=== PATIENT | female | born 1965 | race Caucasian/White ===

== ENCOUNTER → 2017-01-12 | Outpatient (CLI) | payer MEDICAID ==
[~2017-01-12] MED LIST: IOPAMIDOL (ISOVUE-300) 100 ML BTL ONE
== END ==
LOC: FIMAGING 12:18
PROVIDERS: ATTEND Internal Medicine Infectious Disease
DX: R10.84 Generalized abdominal pain (principal); R50.9 Fever, unspecified; R93.3 Abnormal findings on diagnostic imaging of other parts of digestive tract
CPT/HCPCS: Q9967

== ENCOUNTER 2017-02-09 13:03 | Emergency (ER) | payer MEDICAID ==
--- NOTE | 2017-02-09 13:25 | EDPHY ---
H & P Time Seen by Provider: 02/09/17 13:18 HPI/ROS: CHIEF COMPLAINT: Right upper quadrant abdominal pain HPI: The patient is a 51-year-old female who tells me she has a history of chronic Giardia. She underwent a cholecystectomy at some point in the last few years secondary to concern that Giardia might be being harbored in her gallbladder. Since that time she continues to have right upper quadrant pain. She underwent CT scan of her abdomen approximately 1 month ago which showed an abnormal finding in the gallbladder fossa. She is scheduled for a HIDA scan tomorrow. She reports worsening of chronic pain and right upper quadrant which has become severe. This pain is worse with laying on the right side. It is also worse with taking a deep breath. She denies any chest pain or shortness of breath. She denies fever. REVIEW OF SYSTEMS: Aside from elements discussed in the HPI, a comprehensive 10-point review of systems was reviewed and is negative. PMH: Patient underwent an abdominal CT on 01/12/2017 which showed a hypodense collection in the gallbladder fossa, possibly biloma, otherwise negative. SOCIAL HISTORY: Denies alcohol or drug abuse. PHYSICAL EXAM: General:Patient is alert, in no acute distress. She appears in pain. ENT:Eyes are normal to inspection. ENT inspection normal. Neck: Normal inspection. Full range of motion. Respiratory:No respiratory distress. Breath sounds normal bilaterally. Cardiovascular: Regular rate and rhythm. Strong peripheral pulses. Normal cap refill. Abdomen:The abdomen is tender to palpation in the right upper quadrant.. There are no peritoneal signs. There are normal bowel sounds. Back: Normal to inspection. No tenderness to palpation. Skin: Normal color. No rash. Warm and dry. Extremities: Normal appearance. Full range of motion. Neuro: Oriented x3. Normal motor function. Normal sensory function. Smoking Status: Never smoked Constitutional: Initial Vital Signs Temperature (C) 36.6 C 02/09/17 13:05 Heart Rate 72 02/09/17 13:05 Respiratory Rate 18 02/09/17 13:05 Blood Pressure 150/100 H 02/09/17 13:05 O2 Sat (%) 96 02/09/17 13:05 O2 Delivery Mode Room Air O2 (L/minute) 2 Allergies/Adverse Reactions: Sulfa (Sulfonamide Antibiotics) Allergy (Intermediate, Verified 02/09/17 13:11) Hives NSAIDS (Non-Steroidal Anti-Inflamma Allergy (Verified 02/09/17 13:11) paromomycin Allergy (Verified 02/09/17 13:11) tramadol Allergy (Verified 02/09/17 13:11) sz meds Allergy (Uncoded 02/09/17 13:11) Home Medications: Medication Instructions Recorded Diltiazem [Cardizem] 120 mg PO 02/09/17 Fenafexine 02/09/17 Flecainide Acetate 50 mg PO 02/09/17 LORazepam [Ativan (*)] 0.5 mg PO 02/09/17 Levothyroxine [Synthroid 88 mcg 88 mcg PO 02/09/17 (*)] Topiramate [Topamax 25MG Sprinkles 25 mg PO DAILY 02/09/17 (*)] MDM/Departure - MDM Imaging Results: Imaging Impressions Abdomen Ultrasound 02/09/17 14:21 IMPRESSION: 1. Cholelithiasis with a positive sonographic Lee sign. The rounded structure in the gallbladder fossa appears to represent the gallbladder. Further clinical correlation and review of a prior operative report would be helpful. If there is further clinical concern, a nuclear medicine hepatobiliary scan could be considered. 2. Mild hepatomegaly with generalized steatosis. 3. Borderline-prominence of the CBD and pancreatic duct, with no choledocholithiasis observed. 4. Suboptimal assessment of the aorta such that the distal aorta is obscured by overlying bowel gas. Findings were discussed with Harvey Fang MD at 15:19, on 02/09/2017. Imaging: Discussed imaging studies w/ technical business systems analyst Radiologist, I viewed and interpreted images myself Medications Given: Discontinued Medications Hydromorphone HCl (Dilaudid) 1 mg IVP EDNOW ONE Stop: 02/09/17 13:34 Last Admin: 02/09/17 13:48 Dose: 1 mg Hydromorphone HCl (Dilaudid) 1 mg IVP EDNOW ONE Stop: 02/09/17 14:58 Last Admin: 02/09/17 15:01 Dose: 1 mg Hydromorphone HCl (Dilaudid) 1 mg IVP EDNOW ONE Stop: 02/09/17 17:56 Last Admin: 02/09/17 17:57 Dose: 1 mg Oxycodone/Acetaminophen (Percocet 5/325mg Prepack#4) 1 btl [place] ONE Stop: 02/09/17 18:31 Last Admin: 02/09/17 18:33 Dose: 1 btl ED Course/Re-evaluation: I consulted Dr. Major from Surgery at 3:35pm. She has evaluated the patient thoroughly and has arranged for close follow-up with [facility] hepatobiliary service. Medical decision making: This patient presents with worsening of chronic right upper quadrant pain that has become severe. Her clinical presentation is quite confusing as she has a history of a cholecystectomy 1 year ago, but CT and ultrasound suggested the patient still has a gallbladder, and now has gallstones. I was able to pull up the patient's operative report and pathology report from her cholecystectomy 1 year ago, and these clearly do mention the removal of her gallbladder. Given this apparent contradiction, I consulted Dr. Alvarado from surgery and she has evaluated the patient extensively. She offered the patient admission to the hospital and surgical intervention, as well as emergent transfer to the [facility] for further evaluation. The patient feels comfortable going home. She will follow up with her scheduled HIDA scan tomorrow and has been given resources to follow up with the [facility]. She is comfortable with this plan. We discussed strict return precautions. The etiology of her right upper quadrant pain is unknown, but there is clearly an abnormality there that may represent either retained partial gallbladder or possible biloma. Her liver function tests are normal. - Depart Disposition: Home, Routine, Self-Care Clinical Impression: Abdominal pain Condition: Good Instructions: Abdominal Pain (ED) Additional Instructions: Follow-up with your HIDA scan tomorrow as scheduled. No pain medication after midnight. Follow-up with Dr. Matthews from [facility] tomorrow ([phone]). Return to the Emergency Department for worsening pain, fever, severe vomiting, change in character or severity of pain or other worsening of condition. Referrals: PHILLIP PUGH [Other] - As per Instructions
[2017-02-09] MEDS ORDERED: HYDROmorphONE/DILAUDID 1 MG/ML SYR IVP ONE ×3 (13:33→17:55)
[2017-02-09] MEDS ORDERED: ONDANSETRON 4 MG/2 ML VIAL ONE (13:37)
[2017-02-09 13:52] LABS: % IMMATURE GRANULYOCYTES 0.7 % (0.0-1.1); ABSOLUTE IMMATURE GRANULOCYTES 0.05 10^3/uL (0.00-0.10); ADD DIFF? NO; ADD MORPH? NO; ADD SCAN? NO; ATYPICAL LYMPHOCYTE FLAG 0 (0-99); FRAGMENT RBC FLAG 0 (0-99); HEMATOCRIT 41.7 % (38.0-47.0); HEMOGLOBIN 13.9 g/dL (12.6-16.3); LEFT SHIFT FLG 0 (0-99); LIPEMIA HEMOLYSIS FLAG 80 (0-99); MEAN CELL HEMOGLOBIN 29.1 pg (27.9-34.1); MEAN CELL HEMOGLOBIN CONCENTR. 33.3 g/dL (32.4-36.7); MEAN CELL VOLUME 87.2 fL (81.5-99.8); MEAN PLATELET VOLUME 9.8 fL (8.7-11.7); PLATELET CLUMPS FLAG 0 (0-99); PLATELET COUNT 203 10^3/uL (150-400); RED BLOOD CELL COUNT 4.78 10^6/uL (4.18-5.33); RED CELL DISTRIBUTION WIDTH 13.7 % (11.5-15.2)
[2017-02-09 14:11] LABS: ALANINE AMINOTRANSFERASE 41 IU/L (9-52); ALBUMIN 4.1 g/dL (3.5-5.0); ALKALINE PHOSPHATASE 87 IU/L (38-126); ANION GAP 10 mEq/L (8-16); ASPARTATE AMINOTRANSFERASE 26 IU/L (14-46); BILIRUBIN,TOTAL 0.3 mg/dL (0.1-1.4); BILIRUBIN-CONJUGATED 0.2 mg/dL (0.0-0.5); BILIRUBIN-UNCONJUGATED 0.1 mg/dL (0.0-1.1); CALCIUM 9.2 mg/dL (8.5-10.4); CARBON DIOXIDE 21 mEq/l (22-31); CHLORIDE 108 mEq/L (97-110); GLOMERULAR FILTRATION RATE 58; GLUCOSE 89 mg/dL (70-100); POTASSIUM 3.8 mEq/L (3.5-5.2); SODIUM 139 mEq/L (134-144)
[2017-02-09] MEDS ORDERED: HYDROmorphONE/DILAUDID 1 MG/ML SYR ONE ×2 (14:56→17:51)
[2017-02-09 17:57] VITALS: TEMP 98.1
[2017-02-09] MEDS ORDERED: OXYCODONE/APAP 5/325MG PREPACK#4 BTL TAKEHOME ONE (18:30)
[2017-02-09 18:45] VITALS: BP 133/72; PULSE 52; RESP 14; O2SAT 95
--- NOTE | 2017-02-09 21:09 | GCON ---
[f rep st] CONSULTATION GENERAL SURGERY DATE OF CONSULTATION: 02/09/2017 REQUESTING PHYSICIAN: Dr. Harvey Fang. REASON FOR CONSULTATION: Right upper quadrant pain. HISTORY OF PRESENT ILLNESS: The patient is a 51-year-old woman who developed Giardia approximately 2 years ago. She was seen by an infectious disease specialist, and tried antibiotics for approximately 1 year. She had persistent Giardia, and the thought was that her gallbladder could be harboring this. In January of 2016, she had a cholecystectomy performed at [facility], and upon reviewing the operative note it appeared that this was a difficult cholecystectomy, and the gallbladder was taken down from a dome down approach. The surgeon used a 35 ELADIA stapler to come across what the surgeon thought was the cystic duct. Upon reviewing the pathology report, it reveals a 6.2 x 3.3 x 2.5 cm gallbladder with no stones, and the diagnosis revealed chronic cholecystitis with extensive cholesterolosis. I did not see a specific mention of a cystic duct on the pathology report. She then started seeing Dr. Dominguez Rosales in September of 2016. He tested her for Giardia, which was negative, and she started developing postprandial epigastric pain, burning, and fullness. She had a CT scan performed in December, which showed a hypodense collection in the gallbladder fossa measuring 4.1 x 2.6 with increased densities. There was mention of the cystic duct on this report. She was then scheduled to have a HIDA scan tomorrow, but presented to the ER today due to discomfort. It is worse with breathing. She is uncomfortable in many positions, and she still describes it as burning. She had an ultrasound obtained in the emergency room, which showed cholelithiasis, and a positive sonographic Lee's sign. Again, the structure in the gallbladder fossa looked like the gallbladder. No choledocholithiasis was observed. There was no intrahepatic biliary ductal dilatation. PAST MEDICAL HISTORY: Includes adult onset epilepsy, hypothyroidism, hypertension. PAST SURGICAL HISTORY: Includes cholecystectomy, as above, and hysterectomy. She does report that she had another challenging postoperative course after her hysterectomy, where 2 years later passed a large clot or gauze from her vagina. SOCIAL HISTORY: She denies alcohol or drug use. REVIEW OF SYSTEMS: Significant for some shortness of breath due to right upper quadrant pain. Otherwise, 10-point review of systems is negative. ALLERGIES: Sulfa, NSAIDs,tramadol. MEDICATIONS: Reviewed on [employer]. PHYSICAL EXAM: VITAL SIGNS: 36.7, 68, 143/72, 18, 97%. GENERAL: Pleasant, obese woman, lying on side on gurney with family at bedside. She is an excellent historian. HEENT: Normocephalic. Glasses. No gross hearing deficits. Mucous membranes moist. Pupils equal and round. No scleral icterus. LUNGS: Clear to auscultation bilaterally. No increased work of breathing. CARDIAC: Regular rate. No obvious peripheral edema. ABDOMEN: Soft. Her bowel sounds are present. She is tender to deep palpation in the right upper quadrant. No costal tenderness. MUSCULOSKELETAL: Normal nails. NEUROLOGIC: Grossly intact. PSYCH: Appropriately upset at times during the interview. Otherwise, mood and affect normal. LABORATORY DATA: Results reviewed. I personally reviewed the images of the CT scan, the ultrasound, the operative note, and the pathology report. To me, I do see what appears to be a gallbladder remnant on both the CT and the ultrasound. Her labs are within normal limits. IMPRESSION PLAN: The patient is a 51-year-old with right upper quadrant pain. Upon putting all this information together, I believe that she had a dome down approach, and that the surgeon believed he was coming across the cystic duct, but in fact came across the infundibulum, and she has a retained remnant of the gallbladder. I believe that she is symptomatic from this. I discussed with the patient that I believe she would need an open surgery to remove the gallbladder remnant in order to safely be able to dissect around the cystic duct , as well as stay away from injuring the common bile duct or other structures in the area. I am unsure of how much scarring she will have. Her weight would also play a factor in this. The patient did ask to be seen by hepatobiliary specialist. I consulted Dr. Antolin Matthews at the [place], and he recommended continuing to go through with a HIDA scan. I asked the patient not to take pain medicines after midnight, and then to call his office at [phone] in the morning to make an appointment. He will see her Monday afternoon if that is still feasible or next week to develop a plan. I spent approximately 100 minutes interviewing the patient, personally reviewing her films, her operative note, her pathology report, discussing the case with Dr. Matthews, as well as Dr. Fang and Dr. Rosales. I offered the patient the opportunity to be admitted to the [facility], although I do believe that an outpatient appointment is appropriate. She was agreeable to the plan. She understands that she can reach out if her pain is not controlled at home, and then [facility]. /[id number]/MODL MTDD
== END 2017-02-09 18:45 | disposition home or self-care (01) ==
DX: R10.11 Right upper quadrant pain (principal)
CPT/HCPCS: 96374; J1170; J2405

== ENCOUNTER → 2017-02-10 | Outpatient (CLI) | payer MEDICAID | LOC: FIMAGING 10:46 | PROVIDERS: ATTEND Internal Medicine Infectious Disease | DX: R10.11 Right upper quadrant pain (principal) | CPT/HCPCS: A9537 ==

== ENCOUNTER 2017-03-12 15:33 | Emergency (ER) | payer MEDICAID ==
[2017-03-12 15:42] VITALS: RESP 18; O2SAT 92
[2017-03-12 16:25] LABS: % IMMATURE GRANULYOCYTES 0.6 % (0.0-1.1); ABSOLUTE IMMATURE GRANULOCYTES 0.07 10^3/uL (0.00-0.10); ADD DIFF? NO; ADD MORPH? NO; ADD SCAN? NO; ATYPICAL LYMPHOCYTE FLAG 0 (0-99); FRAGMENT RBC FLAG 0 (0-99); HEMATOCRIT 43.2 % (38.0-47.0); HEMOGLOBIN 14.4 g/dL (12.6-16.3); LEFT SHIFT FLG 0 (0-99); LIPEMIA HEMOLYSIS FLAG 80 (0-99); MEAN CELL HEMOGLOBIN 29.2 pg (27.9-34.1); MEAN CELL HEMOGLOBIN CONCENTR. 33.3 g/dL (32.4-36.7); MEAN CELL VOLUME 87.6 fL (81.5-99.8); MEAN PLATELET VOLUME 10.2 fL (8.7-11.7); PLATELET CLUMPS FLAG 0 (0-99); PLATELET COUNT 231 10^3/uL (150-400); RED BLOOD CELL COUNT 4.93 10^6/uL (4.18-5.33); RED CELL DISTRIBUTION WIDTH 13.7 % (11.5-15.2)
--- NOTE | 2017-03-12 16:32 | EDPHY ---
H & P Stated Complaint: ABD Pain Time Seen by Provider: 03/12/17 15:53 HPI/ROS: CHIEF COMPLAINT: Acute exacerbation of chronic abdominal pain HISTORY OF PRESENT ILLNESS: The patient presents to the ED with an acute exacerbation of chronic abdominal pain. The patient has had persistent right upper quadrant pain following a cholecystectomy attributed to a remnant gallbladder not completely removed. The patient was considered for a surgical revision of her cholecystectomy but instead elected for endoscopic stenting. She underwent a stent placement into her remnant gallbladder on of this week at [facility]. Since that time she has had acutely worsening mid abdominal pain with associated nausea. The patient denies vomiting. She denies fever. She also has a history of a reported chronic Giardia infection. REVIEW OF SYSTEMS: A comprehensive 10 point review of systems is otherwise negative aside from elements mentioned in the history of present illness. Source: Patient Exam Limitations: No limitations - Personal History LMP (Females 10-55): Hysterectomy - Medical/Surgical History Other PMH: past hx giardia. diverticulitis. biloma post GB surgery. hysterectomy 2012 - Social History Smoking Status: Never smoked - Physical Exam Exam: General Appearance: Alert, no distress Eyes: Pupils equal and round no pallor or injection ENT, Mouth: Mucous membranes moist Respiratory: There are no retractions, lungs are clear to auscultation Cardiovascular: Regular rate and rhythm Gastrointestinal: Tenderness to palpation noted in the mid epigastrium, normal bowel sounds, no peritoneal signs Neurological: A&O, normal motor function, normal sensory exam, normal cranial nerves Skin: Warm and dry, no rashes Musculoskeletal: Neck is supple nontender Extremities: symmetrical, full range of motion Constitutional: Initial Vital Signs Temperature (C) 36.8 C 03/12/17 15:39 Heart Rate 78 03/12/17 15:39 Respiratory Rate 18 03/12/17 15:39 Blood Pressure 142/87 H 03/12/17 15:39 O2 Sat (%) 92 03/12/17 15:39 O2 Delivery Mode Room Air Allergies/Adverse Reactions: Sulfa (Sulfonamide Antibiotics) Allergy (Intermediate, Verified 03/12/17 15:38) Hives NSAIDS (Non-Steroidal Anti-Inflamma Allergy (Verified 03/12/17 15:38) paromomycin Allergy (Verified 03/12/17 15:38) tramadol Allergy (Verified 03/12/17 15:38) sz meds Allergy (Uncoded 02/09/17 13:11) Home Medications: Medication Instructions Recorded Diltiazem [Cardizem] 120 mg PO 02/09/17 Fenafexine 02/09/17 Flecainide Acetate 50 mg PO 02/09/17 LORazepam [Ativan (*)] 0.5 mg PO 02/09/17 Levothyroxine [Synthroid 88 mcg 88 mcg PO 02/09/17 (*)] Topiramate [Topamax 25MG Sprinkles 25 mg PO DAILY 02/09/17 (*)] Medical Decision Making ED Course/Re-evaluation: I reviewed the patient's past medical records in [facility]. The patient's vital signs are noted to be within normal limits. She has mild abdominal tenderness without peritoneal signs. The patient's laboratory studies, liver function tests and lipase are unremarkable. At this point time there is no evidence of post ERCP pancreatitis or evidence of biliary obstruction. I do feel the patient can be discharged home with close follow up with her primary barrel scraper. She has been instructed to return to the ED for markedly worsening pain, fever, jaundice or other concerns. Differential Diagnosis: Differential diagnosis considered includes post ERCP pancreatitis, hepatitis, gastroenteritis, metabolic abnormality - Data Points Laboratory Results: Laboratory Results 03/12/17 16:10 03/12/17 16:10 03/12/17 03/12/17 16:10 16:10 WBC 11.25 10^3/uL H 10^3/uL (3.80-9.50) RBC 4.93 10^6/uL 10^6/uL (4.18-5.33) Hgb 14.4 g/dL g/dL (12.6-16.3) Hct 43.2 % % (38.0-47.0) MCV 87.6 fL fL (81.5-99.8) MCH 29.2 pg pg (27.9-34.1) MCHC 33.3 g/dL g/dL (32.4-36.7) RDW 13.7 % % (11.5-15.2) Plt Count 231 10^3/uL 10^3/uL (150-400) MPV 10.2 fL fL (8.7-11.7) Neut % (Auto) 61.1 % % (39.3-74.2) Lymph % (Auto) 29.6 % % (15.0-45.0) Green % (Auto) 6.4 % % (4.5-13.0) Eos % (Auto) 1.6 % % (0.6-7.6) Baso % (Auto) 0.7 % % (0.3-1.7) Nucleat RBC Rel Count 0.0 % % (0.0-0.2) Absolute Neuts (auto) 6.87 10^3/uL H 10^3/uL (1.70-6.50) Absolute Lymphs (auto) 3.33 10^3/uL H 10^3/uL (1.00-3.00) Absolute Monos (auto) 0.72 10^3/uL 10^3/uL (0.30-0.80) Absolute Eos (auto) 0.18 10^3/uL 10^3/uL (0.03-0.40) Absolute Basos (auto) 0.08 10^3/uL 10^3/uL (0.02-0.10) Absolute Nucleated RBC 0.00 10^3/uL 10^3/uL (0-0.01) Immature Gran % 0.6 % % (0.0-1.1) Immature Gran # 0.07 10^3/uL 10^3/uL (0.00-0.10) Sodium 141 mEq/L mEq/L (134-144) Potassium 3.7 mEq/L mEq/L (3.5-5.2) Chloride 107 mEq/L mEq/L (97-110) Carbon Dioxide 21 mEq/l L mEq/l (22-31) Anion Gap 13 mEq/L mEq/L (8-16) BUN 12 mg/dL mg/dL (7-23) Creatinine 1.0 mg/dL mg/dL (0.6-1.0) Estimated GFR 58 Glucose 79 mg/dL mg/dL (70-100) Calcium 9.4 mg/dL mg/dL (8.5-10.4) Total Bilirubin 0.6 mg/dL mg/dL (0.1-1.4) Conjugated Bilirubin 0.4 mg/dL mg/dL (0.0-0.5) Unconjugated Bilirubin 0.2 mg/dL mg/dL (0.0-1.1) AST 24 IU/L IU/L (14-46) ALT 38 IU/L IU/L (9-52) Alkaline Phosphatase 84 IU/L IU/L (38-126) Total Protein 7.1 g/dL g/dL (6.3-8.2) Albumin 4.2 g/dL g/dL (3.5-5.0) Lipase 104.0 IU/L IU/L (23-300) Departure - Departure Disposition: Home, Routine, Self-Care Clinical Impression: Abdominal pain Condition: Good Instructions: Abdominal Pain (ED) Additional Instructions: 1. Laboratory testing today demonstrates no evidence of pancreatitis or a problem with your recently placed stent. 2. Please return to the ED for markedly worsening pain, high fever, vomiting, yellowing of the skin/eyes or other concerns. 3. Please follow up with your primary care provider and barrel scraper as scheduled. Referrals: PHILLIP PUGH [Other] - As per Instructions
[2017-03-12 16:44] LABS: ALANINE AMINOTRANSFERASE 38 IU/L (9-52); ALBUMIN 4.2 g/dL (3.5-5.0); ALKALINE PHOSPHATASE 84 IU/L (38-126); ANION GAP 13 mEq/L (8-16); ASPARTATE AMINOTRANSFERASE 24 IU/L (14-46); BILIRUBIN,TOTAL 0.6 mg/dL (0.1-1.4); BILIRUBIN-CONJUGATED 0.4 mg/dL (0.0-0.5); BILIRUBIN-UNCONJUGATED 0.2 mg/dL (0.0-1.1); CALCIUM 9.4 mg/dL (8.5-10.4); CARBON DIOXIDE 21 mEq/l (22-31); CHLORIDE 107 mEq/L (97-110); GLOMERULAR FILTRATION RATE 58; GLUCOSE 79 mg/dL (70-100); POTASSIUM 3.7 mEq/L (3.5-5.2); SODIUM 141 mEq/L (134-144); TOTAL PROTEIN 7.1 g/dL (6.3-8.2)
[2017-03-12 17:54] VITALS: BP 148/74; PULSE 68; TEMP 98.4
== END 2017-03-12 17:53 | disposition home or self-care (01) ==
DX: G89.18 Other acute postprocedural pain (principal); R10.13 Epigastric pain; Z90.49 Acquired absence of other specified parts of digestive tract; Z90.710 Acquired absence of both cervix and uterus

== ENCOUNTER → 2017-09-27 | Outpatient (CLI) | payer MEDICAID | LOC: FIMAGING 10:26 | PROVIDERS: ATTEND Internal Medicine Infectious Disease | DX: M27.2 Inflammatory conditions of jaws (principal); H74.8X2 Other specified disorders of left middle ear and mastoid | CPT/HCPCS: Q9967 ==

== ENCOUNTER → 2017-11-01 | Day surgery (SDC) | payer MEDICAID | END | disposition home or self-care (01) | LOC: FIMAGING 12:02 | PROVIDERS: ATTEND Internal Medicine Infectious Disease | PROC: B518YZA Fluoroscopy of Superior Vena Cava using Other Contrast, Guidance (ICD-10-PCS; principal; 2017-11-01) | PROC: 02HV33Z Insertion of Infusion Device into Superior Vena Cava, Percutaneous Approach (ICD-10-PCS; principal; 2017-11-01) | DX: M86.9 Osteomyelitis, unspecified (principal); Z79.2 Long term (current) use of antibiotics | CPT/HCPCS: 36569; 77001; C1751 ==